=== PATIENT | female | born 1965 | race Caucasian/White ===

== ENCOUNTER 2024-10-03 15:04 | Outpatient (AMB) | payer OTHER, SELFPAY ==
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
--- OUTSIDE RECORDS SUMMARY | 2024-10-03 15:38 | XMS_ITS | Clinical Summary ---
Author Organization [facility] Address [address] [place] [address] Care Team Providers Care Stevedore Hold Name Role Phone Jacey Gamboa Primary Care Provider [phone] Allergies No known active allergies Medications meclizine (ANTIVERT) 25 mg tablet Take 25 mg by mouth 3 times daily as needed. Active Active Problems No known active problems Social History Tobacco Use Types Packs/Day Years Used Date Smoking Tobacco: Never Passive Smoke Exposure: Never Smokeless Tobacco: Never Tobacco Cessation:Counseling Given: Not Answered Alcohol Use Standard Drinks/Week Comments Not Currently 0 (1 standard drink = 0.6 oz pur e alcohol) Comments Unknown Sex and Gender Information Value Date Recorded Sex Assigned at Female 01/24/2024 7:53 PM EST Legal Sex Female 5:50 AM EDT Gender Identity Female 01/24/2024 7:53 PM EST Sexual Orientation Straight 04/02/2024 7: 14 PM EST Last Filed Vital Signs Vital Sign Reading Time Taken Comments Blood Pressure 150/86 04/09/2024 7:46 AM EST Pulse 98 04/09/2024 7:46 AM EST Temperature 36.8 C (98.3 F) 04/09/2024 7:46 AM EST Respiratory Rate - - Oxygen Saturation - - Inhaled Oxygen Concentration - - Weight 61.2 kg (135 lb) 04/09/2024 7:46 AM EST Height - - Body Mass Index - - Plan of Treatment Health Maintenance Due Date Last Done Comments Cervical Cancer Screening 1963 Cologuard 1963 Colon Cancer Screening 1963 Colonoscopy 1963 FOBT / Fit Test 1963 HIV Screening 1963 HPV and Pap Smear 1963 Pap Smear 1963 Sigmoidoscopy 1963 Pneumococcal Vaccine: 50+ Years (1 of 1 - PCV) 2013 Zoster Vaccines (1 of 2) 2013 COVID-19 Vaccine (4 - season) 2023 01/23/2021, 05/23/2020, 05/02/2020 Mammogram 11/18/2023 11/17/2021, 10/22, 09/18/2020, Additional history exists Alcohol/Substance Use Screening 02/21/2024 Depression Screening and Follow-Up 02/21/2024 Social Drivers of Health Annual Screening 02/21/2024 Influenza Vaccine (#1) 2024 , 12/31/2021, 12/29/2021, Additional history exists DTaP,Tdap,and Td Vaccines (2 - Td or Tdap) 10/07/2027 10/06/2017 RSV Vaccine (60+ years old and patients) (1 - 1-dose 75+ series) 2038 Hepatitis C Screening Completed 03/14/2024 Hepatitis B Vaccines Aged Out No long er eligible based on patient's age to complete this topic Insurance CIG[employer] PPO/EPO/IND CIGNA PPO/EPO/IND Care Teams Stevedore Hold Relationship Specialty Start Date End Date Jacey Gamboa [address] [place] [phone] PCP - General 01/24/24
--- OUTSIDE RECORDS SUMMARY | 2024-10-03 15:38 | XMS_ITS | Encounter Summary ---
Author Organization [facility] Address [address] [place] [address] [address] [place] [address] Phone Care Team Providers Care Global Transportation Manager Name Role Phone Gokul Neumann DO Unavailable Modesta Buchanan CNM Unavailable [phone] Barry Gallo MD Unavailable Erlinda Nguyen MD Unavailable Tabby Garrido MASTER OCEAN Unavailable [phone] Marilee Warren MASTER OCEAN Unavailable Patricia Wise MASTER OCEAN Unavailable Gokul Neumann DO Primary Care Provider [phone] Misti Ray Unavailable [phone] Encounter Details Date Type Department Care Team (Late st Contact Info) Description 01/07/2020 Ancillary Orders Virtual Department [address] [place] [address] Gokul Neumann DO [address] [facility] [place] [address] [place] [address] [email or web address] Breast screening Social History Tobacco Use Types Packs/Day Years Used Date Smoking Tobacco: Never Smokeless Tobacco: Never Alcohol Use Standard Drinks/Week Comments Yes 0 (1 standard drink = 0.6 oz pur e alcohol) Comments No Sex and Gender Information Value Date Recorded Sex Assigned at Female 05/10/2021 4:46 PM EDT Legal Sex Female 9:43 PM EDT Gender Identity Female 05/10/2021 4:46 PM EDT Sexual Orientation Straight 05/10/2021 4: 46 PM EDT documented as of this encounter Plan of Treatment Upcoming Encounters Date Type Department Care Team (Late st Contact Info) Description 01/22/2025 3:30 PM EST Office Visit [facility] [place] [address] [place] [address] Misti Ray MBBS [address] [place] [phone] [email or web address] documented as of this encounter Results * BI MAMMOGRAM SCREENING WITH TOMOSYNTHESIS WITH CAD (BILATERAL) (09/18/2020 9:20 AM EDT) Anatomical Region Laterality Modality Breast Left, Breast Right, Breast Bilateral Bila teral Mammography 09/18/2020 9:29 AM EDT Impressions 09/18/2020 9:31 AM EDT No mammographic evidence of malignancy. Recommend routine annual surveillance. BI-RADS CATEGORY: 2 - Benign finding. DENSITY: The breast tissue is heterogeneously dense, which could obscure a lesion on mammography. Narrative 09/18/2020 9:31 AM EDT 55-year-old female with no current breast symptoms. Comparison made to previous on 03/27/2019 and as far back as 11/19/2013. Interpretation made in conjunction with computer-aided detection and tomosynthesis. The breasts are heterogeneously dense, which may obscure small masses. Chronic benign right breast macrocalcification. There are no suspicious masses, areas of architectural distortion, or suspicious clusters of microcalcifications. Procedure Note Thomas Monaco MD - 09/18/2020 55-year-old female with no current breast symptoms. Comparison made toprevious on 03/27/2019 and as far back as 11/19/2013. Interpretation made inconjunction with computer-aided detection and tomosynthesis. The breasts are heterogeneously dense, which may obscure small masses.Chronic benign right breast macrocalcification. There are no suspicious masses, areas of architectural distortion, orsuspicious clusters of microcalcifications. IMPRESSION: No mammographic evidence of malignancy. Recommend routine annualsurveillance. BI-RADS CATEGORY: 2 - Benign finding. DENSITY: The breast tissue is heterogeneously dense, which could obscurea lesion on mammography. us Gokul Neumann DO IMG MG EXAMS Final Result documented in this encounter Visit Diagnoses Diagnosis Breast screening Breast screening, unspecified Breast screening Breast screening, unspecified documented in this encounter Care Teams Global Transportation Manager Relationship Specialty Start Date End Date Gokul Neumann DO PCP - General Internal Medicine 01/07/20 Gokul Neumann DO Historical LMR Provider 12/05/16 Modesta Buchanan CNM [address] [place] [phone] Historical LMR Provider 12/05/16 2 Barry Gallo MD [address] [place] [address] Historical LMR Provider 12/05/16 02/27/21 Erlinda Nguyen MD [address] [place] [phone] Historical LMR Provider 12/05/16 Tabby Garrido NP [address] [place] [address] [email or web address] Historical LMR Provider 12/05/16 2 Marilee Warren NP [address] [place] [address] Historical LMR Provider 12/05/16 2 Patricia Wise NP [address] [place] [phone] Historical LMR Provider 12/05/16 2 Misti Ray MBBS [address] [place] [address] [email or web address] Primary Oncologist Medical Oncology 03/07/24 documented as of this encounter Additional Source Comments The information contained in this document represents components of the legal health record. It is not the complete legal health record.[facility]
== END 2024-10-03 15:35 | disposition home or self-care (01) ==
LOC: HO.HSM 15:05
PROVIDERS: PCP Internal Medicine; Visit Provider Registered Nurse
DX: R42 Dizziness and giddiness (principal); H83.2X2 Labyrinthine dysfunction, left ear
CPT/HCPCS: 99214